=== PATIENT | male | born 1990 | race Two or more races ===

== ENCOUNTER 2017-04-14 15:32 | Emergency (ER) | payer MEDICAID ==
[~2017-04-14] VITALS: Ht 172.7 cm; Wt 80.0 kg
[2017-04-14 22:30] VITALS: BP 123/65
== END 2017-04-14 22:38 | disposition home or self-care (01) ==
LOC: ER 16:26
DX: S63.613A Unspecified sprain of left middle finger, initial encounter (principal); F17.200 Nicotine dependence, unspecified, uncomplicated; V19.88XA Pedal cyclist (driver) (passenger) injured in other specified transport accidents, initial encounter; Y93.I9 Activity, other involving external motion; Y92.89 Other specified places as the place of occurrence of the external cause; Y99.8 Other external cause status
CPT/HCPCS: 99283